=== PATIENT | female | born 1980 | race Two or more races ===

== ENCOUNTER 2022-06-02 06:00 | Day surgery (SDC) | payer OTHER ==
[~2022-06-02] VITALS: Ht 154.9 cm; Wt 88.0 kg
[~2022-06-02 06:00] MED LIST: BENTYL10 MG/1 ML IM; CLONAZEPAM0.5 MG PO; COZAAR25 MG PO; LEXAPRO20 MG PO; LIPITOR40 MG PO; METOPROLOL SUCC25 MG PO; NEURONTIN600 M1 PO; REGLAN5 MG/5 ML PO
[2022-06-02] MEDS ORDERED: ULTRACET PO (07:56)
[2022-06-02] MEDS ORDERED: COLACE100 MG PO (07:56)
== END 2022-06-02 12:45 | disposition home or self-care (01) ==
LOC: CIR.AMB 06:00
PROVIDERS: ATTEND Surgery
DX: K62.0 Anal polyp (principal); Z20.822 Contact with and (suspected) exposure to COVID-19; I10 Essential (primary) hypertension; Z86.16 Personal history of COVID-19; Z87.891 Personal history of nicotine dependence; M79.7 Fibromyalgia